=== PATIENT | female | born 2000 | race Caucasian/White ===

== ENCOUNTER 2019-09-21 13:09 | Outpatient (CLI) | payer OTHER ==
[2019-09-21 15:03] LABS: BACTERIA (WET MOUNT) 4+ BACTERIA SEEN; EPITHELIALS (WET MOUNT) 4+ EPITHELIALS SEEN; RBCS (WET MOUNT) RARE RBCS SEEN; T.VAGINALIS (WET MOUNT) NO TRICHOMONAS SEEN; WBCS (WET MOUNT) 2+ WBCS SEEN; YEAST (WET MOUNT) NO YEAST SEEN
[2019-09-21 16:33] LABS: APPEARANCE,URINE SLIGHTLY-CLOUDY; BILIRUBIN,URINE NEGATIVE (NEGATIVE); COLOR,URINE YELLOW; GLUCOSE, URINE NEGATIVE (NEGATIVE); KETONES,URINE NEGATIVE (NEGATIVE); LEUKOCYTE ESTERASE,URINE LARGE (NEGATIVE); NITRITE,URINE NEGATIVE (NEGATIVE); PROTEIN,URINE NEGATIVE (NEGATIVE); URINE SPECIFIC GRAVITY 1.011; UROBILINOGEN,URINE NEGATIVE mg/dL (<2.0)
== END 2019-09-21 16:52 | disposition home or self-care (01) ==
LOC: LC 13:09
PROVIDERS: ATTEND Obstetrics & Gynecology
PROC: 4A1HXCZ Monitoring of Products of Conception, Cardiac Rate, External Approach (ICD-10-PCS; principal; 2019-09-21)
DX: O47.03 False labor before 37 completed weeks of gestation, third trimester (principal); Z3A.34 34 weeks gestation of pregnancy
CPT/HCPCS: 59025; 81001; 84112; 87210

== ENCOUNTER 2019-11-05 20:54 | Inpatient (IN) | payer OTHER ==
[2019-11-05] MEDS ORDERED: RINGERS SOLUTION,LACTATED 1,000 ML IV PRN (21:06)
[2019-11-05] MEDS ORDERED: DINOPROSTONE 10 MG VAGINAL INSERT.SR PV PRN (21:06)
[2019-11-05] MEDS ORDERED: DINOPROSTONE 10 MG VAGINAL INSERT.SR ONE (21:34)
[2019-11-05] MEDS ORDERED: RINGERS SOLUTION,LACTATED 300 ML IV ONE (21:45)
[2019-11-05 21:49] LABS: ABSOLUTE EOSINOPHILS # (AUTO) 0.1 10^3/uL (0.0-0.6); ABSOLUTE LYMPHOCYTES (AUTO) 1.5 10^3/uL (0.5-4.7); ABSOLUTE MONOCYTES (AUTO) 0.7 10^3/uL (0.1-1.4); ABSOLUTE NEUT (AUTO) 8.8 10^3/uL (1.7-8.2); BASOPHILS % (AUTO) 0.3 % (0-2); EOSINOPHILS % (AUTO) 0.7 % (0-6); HEMATOCRIT 27.2 % (36.0-47.0); HEMOGLOBIN 9.1 g/dL (12.0-15.5); LYMPHOCYTES % (AUTO) 13.8 % (13-45); MEAN CORPUSCULAR HEMOGLOBIN 27.4 pg (27.0-33.4); MEAN CORPUSCULAR HGB CONC 33.4 g/dL (32.0-36.0); MEAN CORPUSCULAR VOLUME 82 fl (80-97); MONOCYTES % (AUTO) 6.2 % (3-13); PLATELET COUNT 299 10^3/uL (150-450); RED BLOOD COUNT 3.31 10^6/uL (3.72-5.28); RED CELL DISTRIBUTION WIDTH 14.5 % (11.5-14.0); TOTAL CELLS COUNTED % (AUTO) 100 %; WHITE BLOOD COUNT 11.1 10^3/uL (4.0-10.5)
[2019-11-05 22:05] LABS: APPEARANCE,URINE TURBID; BILIRUBIN,URINE NEGATIVE (NEGATIVE); GLUCOSE, URINE NEGATIVE (NEGATIVE); KETONES,URINE NEGATIVE (NEGATIVE); LEUKOCYTE ESTERASE,URINE LARGE (NEGATIVE); NITRITE,URINE NEGATIVE (NEGATIVE); PROTEIN,URINE 100 mg/dL (NEGATIVE); URINE SPECIFIC GRAVITY 1.019
[2019-11-05 22:06] LABS: COLOR,URINE DARK YELLOW
[2019-11-05 22:25] LABS: URINE AMPHETAMINES SCREEN NEGATIVE; URINE BARBITURATES SCREEN NEGATIVE; URINE BENZODIAZEPINES SCREEN NEGATIVE; URINE COCAINE SCREEN NEGATIVE; URINE MARIJUANA (THC) SCREEN NEGATIVE; URINE METHADONE SCREEN NEGATIVE; URINE PHENCYCLIDINE SCREEN NEGATIVE
--- NOTE | 2019-11-06 10:04 | Admission Physical ---
Datetime Report Generated by CPN: 11/06/2019 10:04 CURRENT ADMISSION Chief Complaint: Scheduled Induction of Labor Indication for Induction: IUGR Indication for Induction- Other: suspected IUGR vs SGA Admit Impression : Term, Intrauterine ; No Active Labor; Induction of Labor Admit Plan: Admit to Unit; Initiate Labor Induction Protocol ALLERGIES Medication Allergies: No Medication Allergies: No Known Allergies (11/05/2019) Latex: No Latex Allergies OBSTETRICAL HISTORY EDC: 11/02/2019 00:00 : 2 Para: 0 Term: 0 : 0 SAB: 1 IAB: 0 Ectopic: 0 Livin Cesareans: 0 VBACs: 0 Multiple Births: 0 Gestational Diabetes: No Rh Sensitization: No Incompetent Cervix: No TARI: No Infertility: No ART Treatment: No Uterine Anomaly: No IUGR: Yes Hx Previous C/S: No Macrosomia: No Hx Loss/Stillborn: No PIH: No Hx : No Placenta Previa/Abruption: No Depression/PP Depression: No PTL/PROM: No Post Hemorrhage: No Current Procedures: Ultrasound Obstetrical History Comments: anemia on iron SEE RECORDS Alcohol: No Marijuana : No Cocaine: No Other Illicit Drugs: No Cigarettes: Former Smoker. 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: No Heart Disease: No Hosp/Surgery: No Autoimmune Disorder: No Anesthetic Complications: No Kidney Disease: No Abnormal Pap Smear: No Neuro/Epilepsy: No Psychiatric Disorders: No Other Medical Diseases: No Hepatitis/Liver Disease: No Significant Family History: No Varicosities/Phlebitis: No Trauma/Violence : No Thyroid Dysfunction: No INFECTIOUS HISTORY Gonorrhea: No Genital Herpes: No Chlamydia: No Tuberculosis: No Syphilis: No Hepatitis: No HIV/AIDS Exposure: No Rash or Viral Illness: No HPV: No PHYSICAL EXAM General: Normal HEENT: Normal Neurologic: Normal Thyroid: Normal Heart: Normal Lungs: Normal Breast: Normal Back: Normal Abdomen: Normal Genitourinary Exam: Normal Extremities: Normal DTRs: Normal Pelvic Type: Adequate Vital Signs: Reviewed VAGINAL EXAM Dilatation: 1 Effacement: 25 Station: -3 MEMBRANES Pooling: Negative Membranes: Intact FETUS A EGA: 40.4 Monitoring: External US FHR- Baseline: 130 Variability: Moderate 6-25bpm Accelerations: 15X15 Decelerations: None FHR Category: Category I Estimated Weight (gm): 3500 Presentation: Vertex Admit Comment: There is questionable IUGR vs SGA. Has been counseled on risks. PLANS FOR LABOR AND DELIVERY Labor and Delivery: None Pain Management: Epidural Feeding Preference: Formula Benefit of Breast Feed Discussed: Yes INFORMED CONSENT Signature: with User ID: [email or web address]
[2019-11-06] MEDS ORDERED: OXYTOCIN/NORMAL SALINE 20 UNIT/1,000 ML RTUINJ IV PRN ×2 (10:15→23:36)
[2019-11-06] MEDS ORDERED: OXYTOCIN 10 UNIT/ML VIAL ONE (10:56)
[2019-11-06] MEDS ORDERED: LIDOCAINE 1% INJ-PF (10 MG/ML) 30 ML SDV ONE (10:56)
[2019-11-06] MEDS ORDERED: OXYTOCIN/NORMAL SALINE 20 UNIT/1,000 ML RTUINJ ONE (10:56)
[2019-11-06] MEDS ORDERED: MISOPROSTOL 0.2 MG TABLET ONE (10:56)
[2019-11-06] MEDS ORDERED: ACETAMINOPHEN 325 MG TABLET ONE (15:14)
[2019-11-06] MEDS ORDERED: ACETAMINOPHEN 325 MG TABLET PO ONE (15:16)
[2019-11-06] MEDS ORDERED: EPHEDRINE SULFATE INJ 50 MG/1 ML AMPULE ONE (15:28)
[2019-11-06] MEDS ORDERED: FENTANYL/BUPIVACAINE/NS/PF 300 MCG/150 ML RTUINJ EPI ONE (15:29)
[2019-11-06] MEDS ORDERED: BUPIVACAINE HCL 0.25 % INJ/PF (2.5 MG/1 ML) 30 ML VIAL ONE (15:29)
[2019-11-06] MEDS ORDERED: FENTANYL CITRATE INJ/PF 100 MCG/2 ML AMPUL ONE (15:46)
[2019-11-06] MEDS ORDERED: PROMETHAZINE HCL 25 MG SUPP.RECT PR PRN (23:36)
[2019-11-06] MEDS ORDERED: ACETAMINOPHEN WITH CODEINE #3 TABLET PO PRN (23:36)
[2019-11-06] MEDS ORDERED: MAGNESIUM HYDROXIDE SUSP 30 ML UDCUP PO PRN (23:36)
[2019-11-06] MEDS ORDERED: PSEUDOEPHEDRINE HCL 30 MG TABLET PO PRN (23:36)
[2019-11-06] MEDS ORDERED: MEASLES,MUMPS&RUBELLA VACC/PF 0.5 ML VIAL SUBCUT PRN (23:36)
[2019-11-06] MEDS ORDERED: DIPHENHYDRAMINE HCL 25 MG CAPSULE PO PRN (23:36)
[2019-11-06] MEDS ORDERED: ACETAMINOPHEN 650 MG SUPP.RECT PR PRN (23:36)
[2019-11-06] MEDS ORDERED: GLYCERIN/WITCH HAZEL LEAF 1 EACH MED..WIPE TP PRN (23:36)
[2019-11-06] MEDS ORDERED: ZOLPIDEM TARTRATE 5 MG TABLET PO PRN (23:36)
[2019-11-06] MEDS ORDERED: DIBUCAINE 1% OINTMENT 28 GM TP PRN (23:36)
[2019-11-06] MEDS ORDERED: PROMETHAZINE HCL 25 MG TABLET PO PRN (23:36)
[2019-11-06] MEDS ORDERED: PROMETHAZINE HCL INJ 25 MG/1 ML VIAL IV PRN (23:36)
[2019-11-06] MEDS ORDERED: NA PHOS,M-B/NA PHOS,DI-BA (ADULT) 133 ML ENEMA PR PRN (23:36)
[2019-11-06] MEDS ORDERED: BENZOCAINE/MENTHOL AEROSOL SPRAY 56 ML TOP PRN (23:36)
[2019-11-06] MEDS ORDERED: DIPH/PERTUSS(ACELL)/TETANUS VAC/PF 0.5 ML SYR (>=10YO) IM PRN (23:36)
[2019-11-06] MEDS ORDERED: FAMOTIDINE 20 MG TABLET PO ONE (23:45)
--- NOTE | 2019-11-07 00:22 | Delivery Summary ---
Del Sum A-C Datetime Report Generated by CPN: 11/07/2019 00:22 DELIVERY PERSONNEL DELIVERY PERSONNEL: [id number] Delivery Doctor:: Julia Calderon MD Labor and Delivery Nurse:: Lisa Andres RNcity attorney Nurse:: Joana Strong RNC Nursery Nurse:: Loyda Tomas RN Nursery Nurse:: Ailyn Guerra RN English As A Second Language Instructor/MANAGER ENGINE: Kylah Green, ST MATERNAL INFORMATION Delivery Anesthesia: Epidural Medications After Delivery: Pitocin Drip 20 Units/1000ml NSS Delivery QBL: 150 Maternal Complications: None LABOR SUMMARY EDC: 11/02/2019 00:00 No. Babies in Womb: 1 (Annotations: Data stored by [facility] on behalf of user) Attempted: No Labor Anesthesia: Epidural LABOR INFORMATION Reason for Induction: Intrauterine Growth Retardation Onset of Labor: 11/06/2019 17:09 Complete Dilatation: 11/06/2019 22:28 Cervical Ripening Agents: Cervidil Oxytocin: Induction Group B Beta Strep: negative Antibiotics # of Doses: 0 Antibiotics Time of Last Dose: 0 Name of Antibiotic Given: 0 Steroids Given: None Reason Steroids Not Administered: Not Applicable MEMBRANES Membranes Rupture Method: Artificial Rupture of Membranes: 11/06/2019 17:09 Length of Rupture (hr): -161.92 Amniotic Fluid Color: Clear Amniotic Fluid Amount: Moderate Amniotic Fluid Odor: Normal STAGES OF LABOR Stage 1 hr: 5 Stage 1 min: 19 Stage 2 hr: -167 Stage 2 min: -14 Stage 3 hr: 168 Stage 3 min: 3 Total Time in Labor hr: 6 Total Time in Labor min: 8 VAGINAL DELIVERY Episiotomy: None Laceration #1: Sulcus Laceration Extension #1: Second Degree Laceration Repair: Yes Laceration Repair Note: clitoral segal repair with 3-0 chromic interrupted sutures Sponge Count Correct: Yes Sharps Count Correct: Yes CSECTION DELIVERY Primary Indication: N/A Secondary Indication: N/A CSection Incidence: N/A Labor: N/A Elective: N/A BABY A INFORMATION Infant Delivery Date/Time: 10/30/2019 23:14 Method of Delivery: Vaginal Born in Route : No : N/A Forceps: N/A Vacuum Extraction: N/A Shoulder Dystocia : No PRESENTATION/POSITION BABY A Presentation: Cephalic Cephalic Presentation: Vertex Vertex Position: Left Occipital Anterior Breech Presentation: N/A PLACENTA INFORMATION BABY A Placenta Delivery Time : 11/06/2019 23:17 Placenta Method of Delivery: Spontaneous Placenta Status: Delivered SCORES BABY A Heart Rate 1 min: >100 bpm Resp Effort 1 min: Good Cry Reflex Irritability 1 min: Cough or Sneeze or Pulls Away Muscle Tone 1 min: Active Motion Color 1 min: Blue/Pale SCORE 1 MIN: 8 Heart Rate 5 min: >100 bpm Resp Effort 5 min: Good Cry Reflex Irritability 5 min: Cough or Sneeze or Pulls Away Muscle Tone 5 min: Active Motion Color 5 min: Body [place], Extremities Blue SCORE 5 MIN: 9 INFORMATION BABY A Gestational Age at Delivery: 40.4 Gestational Status: Full Term- 39- 40.6 Weeks Outcome : Liveborn Condition : Stable Sex: Male IDENTIFICATION BABY A Verification Date/Time: 11/06/2019 23:22 ID Band Number: [id number] Mother's Name Verified: Yes Infant RN Verifying Infant: JNsampson,RN Additional Verifying Personnel: US Donna WEIGHT/LENGTH BABY A Birthweight (gm): 2835 Weight (lb): 6 Weight (oz): 4 Length (in): 18.75 Length (cm): 47.63 CORD INFORMATION BABY A No. Cord Vessels: 3 Nuchal Cord : Around Neck x1, Loose Cord Blood Taken: Yes-For Eval (Mom's Blood Type - or O+) Infant Suction: Mouth; Nose ASSESSMENT BABY A Skin to Skin: Yes Skin to Skin Time (min): 60 BABY B INFORMATION : N/A SIGNATURES Signature: with User ID: [email or web address]
[2019-11-07] MEDS ORDERED: IBUPROFEN 800 MG TABLET ONE (01:03)
[2019-11-07] MEDS: IBUPROFEN 800 MG TABLET PO SCH ×3 (06:11→22:55)
[2019-11-07 07:24] LABS: HEMATOCRIT 24.3 % (36.0-47.0); MEAN CORPUSCULAR HEMOGLOBIN 26.9 pg (27.0-33.4); MEAN CORPUSCULAR HGB CONC 32.5 g/dL (32.0-36.0); MEAN CORPUSCULAR VOLUME 83 fl (80-97); PLATELET COUNT 240 10^3/uL (150-450); RED BLOOD COUNT 2.94 10^6/uL (3.72-5.28); RED CELL DISTRIBUTION WIDTH 14.3 % (11.5-14.0); WHITE BLOOD COUNT 12.6 10^3/uL (4.0-10.5)
[2019-11-07 07:34] LABS: HEMOGLOBIN 7.9 g/dL (12.0-15.5)
--- NOTE | 2019-11-07 08:57 | PDOC PROGRESS REPORT ---
Subjective-OB Progress Note for:: 11/07/19 Subjective: Doing well, no c/o, eating bkf, family at BS Physical Exam (OB) Vital Signs: Temp Pulse Resp BP Pulse Ox 97.7 F 73 16 98/54 L 98 11/07/19 07:48 11/07/19 07:48 11/07/19 07:48 11/07/19 07:48 11/07/19 07:48 Intake & Output 11/06/19 11/07/19 11/08/19 06:59 06:59 06:59 Weight 66 kg - PIH/Pre-Eclampsia Clonus: Negative Headache: Absent Epigastric Pain: No Visual Changes: No - Lochia Lochia Amount: Small 10-25 ml Lochia Color: Rubra/Red - Abdomen Description: Soft Hernia Present: No Fundal Description: Firm, Midline Fundal Height: u/u - u/2 Objective-Diagnostic Laboratory: 11/07/19 06:46 11/07/19 06:46 WBC 12.6 H RBC 2.94 L Hgb 7.9 L Hct 24.3 L MCV 83 MCH 26.9 L MCHC 32.5 RDW 14.3 H Plt Count 240 Assessment and Plan(PN) - Assessment and Plan (1) IUGR (intrauterine growth restriction) Is this a current diagnosis for this admission?: Yes (2) Anemia Qualifiers: Anemia type: iron deficiency Is this a current diagnosis for this admission?: Yes (3) Delivery normal Is this a current diagnosis for this admission?: Yes - Time Spent with Patient Time with patient: Less than 15 minutes Medications reviewed and adjusted accordingly: Yes - Disposition Anticipated Discharge: Home Within: within 24 hours
[2019-11-07] MEDS: FAMOTIDINE 20 MG TABLET PO SCH ×2 (09:23→23:42)
[2019-11-07] MEDS: DOCUSATE SODIUM 100 MG CAPSULE PO SCH ×2 (09:23→17:42)
[2019-11-07] MEDS: FERROUS SULFATE 325 MG TABLET PO SCH ×2 (09:23→17:42)
[2019-11-07] MEDS: PRENATAL VITAMIN W DHA CAPSULE PO SCH (09:23)
[2019-11-07] MEDS: SENNOSIDES/DOCUSATE 8.6-50 MG 1 EACH TABLET PO SCH (09:23)
[2019-11-07] MEDS: ACETAMINOPHEN WITH CODEINE #3 TABLET PO PRN ×2 (14:06→18:07)
[2019-11-08] MEDS: IBUPROFEN 800 MG TABLET PO SCH ×2 (05:56→13:16)
[2019-11-08 07:54] VITALS: BP 99/63
--- NOTE | 2019-11-08 09:30 | PDOC DISCHARGE SUMMARY ---
Impression - Admit/DC Date/PCP Admission Date/Primary Care Provider: 11/05/19 20:55 EDWINA MALLORY MD Discharge Date: 11/08/19 - PP day #2, no complaints, O+, Rubella Immune, IOL for IUGR, hx anemia - Discharge Diagnosis (1) Normal course Is this a current diagnosis for this admission?: Yes - Additional Information Resuscitation Status: Full Code Discharge Diet: As Tolerated, Regular Discharge Activity: Activity As Tolerated, No Lifting Over 10 Pounds, Pelvic Rest Referrals: EDWINA MALLORY MD [Primary Care Provider] - Prescriptions: Ibuprofen [Motrin 800 mg Tablet] 800 mg PO Q8 #60 tablet Home Medications: 95/Iron Fum/Folic/Dha [ + Dha Combo Pack] 1 tab PO DAILY 09/21/19 Ferrous Sulfate [Feosol 325 mg Tablet] 325 mg PO BID tablet 11/08/19 Ibuprofen [Motrin 800 mg Tablet] 800 mg PO Q8 #60 tablet 11/08/19 HPI Reason(s) for Admission: Induction of Labor Admission Note: for IUGR Procedures: NST, Ultrasound Intrapartum Procedure(s): Spontaneous Vaginal Delivery Complication(s): Laceration-Vaginal Laceration-Degree: 2nd Hospital Course Hospital Course: stable hospital course Results Laboratory Results: WBC 12.6 10^3/uL (4.0-10.5) H 11/07/19 06:46 RBC 2.94 10^6/uL (3.72-5.28) L 11/07/19 06:46 Hgb 7.9 g/dL (12.0-15.5) L 11/07/19 06:46 Hct 24.3 % (36.0-47.0) L 11/07/19 06:46 MCV 83 fl (80-97) 11/07/19 06:46 MCH 26.9 pg (27.0-33.4) L 11/07/19 06:46 MCHC 32.5 g/dL (32.0-36.0) 11/07/19 06:46 RDW 14.3 % (11.5-14.0) H 11/07/19 06:46 Plt Count 240 10^3/uL (150-450) 11/07/19 06:46 Lymph % (Auto) 13.8 % (13-45) 11/05/19 21:40 Brooke % (Auto) 6.2 % (3-13) 11/05/19 21:40 Eos % (Auto) 0.7 % (0-6) 11/05/19 21:40 Baso % (Auto) 0.3 % (0-2) 11/05/19 21:40 Absolute Neuts (auto) 8.8 10^3/uL (1.7-8.2) H 11/05/19 21:40 Absolute Lymphs (auto) 1.5 10^3/uL (0.5-4.7) 11/05/19 21:40 Absolute Monos (auto) 0.7 10^3/uL (0.1-1.4) 11/05/19 21:40 Absolute Eos (auto) 0.1 10^3/uL (0.0-0.6) 11/05/19 21:40 Absolute Basos (auto) 0.0 10^3/uL (0.0-0.2) 11/05/19 21:40 Seg Neutrophils % 79.0 % (42-78) H 11/05/19 21:40 Urine Color DARK YELLOW 11/05/19 21:20 Urine Appearance TURBID 11/05/19 21:20 Urine pH 5.0 (5.0-9.0) 11/05/19 21:20 Ur Specific [place] 1.019 11/05/19 21:20 Urine Protein 100 mg/dL (NEGATIVE) H 11/05/19 21:20 Urine Glucose (UA) NEGATIVE mg/dL (NEGATIVE) 11/05/19 21:20 Urine Ketones NEGATIVE mg/dL (NEGATIVE) 11/05/19 21:20 Urine Blood SMALL (NEGATIVE) H 11/05/19 21:20 Urine Nitrite NEGATIVE (NEGATIVE) 11/05/19 21:20 Urine Bilirubin NEGATIVE (NEGATIVE) 11/05/19 21:20 Urine Urobilinogen 4.0 mg/dL (<2.0) H 11/05/19 21:20 Ur Leukocyte Esterase LARGE (NEGATIVE) H 11/05/19 21:20 Urine Ascorbic Acid NEGATIVE (NEGATIVE) 11/05/19 21:20 Urine Opiates Screen NEGATIVE 11/05/19 21:20 Urine Methadone Screen NEGATIVE 11/05/19 21:20 Ur Barbiturates Screen NEGATIVE 11/05/19 21:20 Ur Phencyclidine Scrn NEGATIVE 11/05/19 21:20 Ur Amphetamines Screen NEGATIVE 11/05/19 21:20 U Benzodiazepines Scrn NEGATIVE 11/05/19 21:20 Urine Cocaine Screen NEGATIVE 11/05/19 21:20 U Marijuana (THC) Screen NEGATIVE 11/05/19 21:20 RPR NONREACTIVE (NONREACTIVE) 11/05/19 21:40 Blood Type O POSITIVE 11/05/19 21:40 Antibody Screen NEGATIVE 11/05/19 21:40 Plan Health Concerns: increase iron rich foods, continue w/ iron supplementation at home Plan of Treatment: d/c to home. F/up with [facility] in 4 wks for PP check Time Spent: Less than 30 Minutes
[2019-11-08] MEDS: PRENATAL VITAMIN W DHA CAPSULE PO SCH (10:06)
[2019-11-08] MEDS: SENNOSIDES/DOCUSATE 8.6-50 MG 1 EACH TABLET PO SCH (10:06)
[2019-11-08] MEDS: FERROUS SULFATE 325 MG TABLET PO SCH (10:06)
[2019-11-08] MEDS: DOCUSATE SODIUM 100 MG CAPSULE PO SCH (10:06)
[2019-11-08] MEDS: FAMOTIDINE 20 MG TABLET PO SCH (10:39)
== END 2019-11-08 16:01 | disposition home or self-care (01) | DRG 806 ==
LOC: LC 20:54 → LR 20:55 → 2S 11-07 01:29
PROVIDERS: ADMIT Obstetrics & Gynecology Gynecology; ATTEND Obstetrics & Gynecology Gynecology
PROC: 10E0XZZ Delivery of Products of Conception, External Approach (ICD-10-PCS; principal; 2019-11-06)
PROC: 0KQM0ZZ Repair Perineum Muscle, Open Approach (ICD-10-PCS; 2019-11-06)
PROC: 3E033VJ Introduction of Other Hormone into Peripheral Vein, Percutaneous Approach (ICD-10-PCS; 2019-11-06)
PROC: 10907ZC Drainage of Amniotic Fluid, Therapeutic from Products of Conception, Via Natural or Artificial Opening (ICD-10-PCS; 2019-11-06)
DX: O36.5930 Maternal care for other known or suspected poor fetal growth, third trimester, not applicable or unspecified (principal); O71.4 Obstetric high vaginal laceration alone; Z37.0 Single live birth; O69.81X0 Labor and delivery complicated by cord around neck, without compression, not applicable or unspecified; O99.02 Anemia complicating childbirth; Z3A.40 40 weeks gestation of pregnancy; Z87.891 Personal history of nicotine dependence
CPT/HCPCS: 36415; 80307; 81005; 85025; 85027; 86592; 86850; 86900; 86901; J2590; J3010; J3490

== ENCOUNTER 2019-11-09 02:26 | Emergency (ER) | payer OTHER ==
[2019-11-09 02:58] LABS: APPEARANCE,URINE SLIGHTLY-CLOUDY; BILIRUBIN,URINE NEGATIVE (NEGATIVE); COLOR,URINE YELLOW; GLUCOSE, URINE NEGATIVE (NEGATIVE); KETONES,URINE NEGATIVE (NEGATIVE); LEUKOCYTE ESTERASE,URINE LARGE (NEGATIVE); NITRITE,URINE NEGATIVE (NEGATIVE); PROTEIN,URINE 30 mg/dL (NEGATIVE); URINE SPECIFIC GRAVITY 1.019
[2019-11-09] MEDS ORDERED: PHENAZOPYRIDINE HCL 200 MG TABLET PO ONE (05:16)
[2019-11-09] MEDS ORDERED: CEPHALEXIN 500 MG CAPSULE PO ONE (05:16)
--- NOTE | 2019-11-09 05:21 | ER Document Report ---
HPI - HPI Time Seen by Provider: 11/09/19 05:08 Pain Level: 5 Context: Patient is a 19-year-old female that comes to the emergency department for chief complaint of painful urination which started over the past 24 hours. She is 3 days status post vaginal delivery without complications. She denies abdominal pain, flank pain, fever, nausea/vomiting, or any other complaints. She denies vaginal discharge, breast pain, heavy vaginal bleeding. She is taking ibuprofen but no other medications. She is not breast-feeding. - URINARY Urinary: REPORTS: Dysuria Past Medical History - General Information source: Patient - Social History Smoking Status: Never Smoker Frequency of alcohol use: None Drug Abuse: None Lives with: Family Family History: Reviewed & Not Pertinent Patient has suicidal ideation: No Patient has homicidal ideation: No Surgical Hx: Negative - Immunizations Immunizations up to date: Yes Hx Diphtheria, Pertussis, Tetanus Vaccination: Yes Vertical Provider Document - CONSTITUTIONAL General Appearance: WD/WN, No Apparent Distress - INFECTION CONTROL TRAVEL OUTSIDE OF THE [place] IN LAST 30 DAYS: No - HEENT HEENT: Atraumatic, Normal ENT Exam, Normocephalic - NECK Neck: Normal Inspection - RESPIRATORY Respiratory: Breath Sounds Normal, No Respiratory Distress - CARDIOVASCULAR Cardiovascular: Regular Rate, Regular Rhythm - GI/ABDOMEN Gastrointestinal: Abdomen Soft, Abdomen Non-Tender. negative: Abdomen Tender, Abdominal Guarding - BACK Back: Normal Inspection - MUSCULOSKELETAL/EXTREMETIES Musculoskeletal/Extremeties: MAEW, FROM, Non-Tender - NEURO Level of Consciousness: Awake, Alert, Appropriate Motor/Sensory: No Motor Deficit, No Sensory Deficit - DERM Integumentary: Warm, Dry, No Rash Course - Re-evaluation Re-evalutation: Patient is well-appearing, alert, has no abdominal tenderness on my exam. She only has pain with urination. She has no CVA tenderness, no fever, no vomiting. Clinical picture is most consistent with urinary tract infection, low suspicion of endometritis or other emergent pathology. Urinalysis does indicate infection. Provided with treatment, discussed follow-up, expectations, return precautions. She states understanding and agreement. Stable at time of discharge. - Vital Signs Vital signs: Temp Pulse Resp BP Pulse Ox 98.2 F 80 16 106/80 98 11/09/19 03:22 11/09/19 03:22 11/09/19 03:22 11/09/19 03:22 11/09/19 03:22 - Laboratory Laboratory results interpreted by me: 11/09/19 02:41 Urine Protein 30 H Urine Blood LARGE H Urine Urobilinogen 2.0 H Ur Leukocyte Esterase LARGE H Discharge - Discharge Clinical Impression: Dysuria Urinary tract infection Qualifiers: Urinary tract infection type: site unspecified Hematuria presence: without hematuria Qualified Code(s): N39.0 - Urinary tract infection, site not specified Condition: Stable Disposition: HOME, SELF-CARE Additional Instructions: Your symptoms and testing indicate a urinary tract infection. Take antibiotics as prescribed to completion. Follow-up closely with [facility] for additional management. Return if you worsen including developing abdominal pain, vomiting, fever, or any other concerning or worsening symptoms. Prescriptions: Cephalexin Monohydrate [Keflex 500 mg Capsule] 500 mg PO BID 7 Days #14 capsule Referrals: EDWINA MALLORY MD [Primary Care Provider] - Follow up as needed
[2019-11-09 06:10] VITALS: BP 110/69
== END 2019-11-09 06:15 | disposition home or self-care (01) ==
LOC: ER 02:26
DX: O86.20 Urinary tract infection following delivery, unspecified (principal)
CPT/HCPCS: 99283; 81001; J3490